=== PATIENT | female | born 1995 | race Caucasian/White ===

== ENCOUNTER 2017-03-08 02:10 | Emergency (ER) | payer OTHER ==
[2017-03-08 02:17] VITALS: TEMP 97.5
[2017-03-08 08:02] VITALS: BP 158/112; PULSE 73
== END 2017-03-08 07:45 | disposition home or self-care (01) ==
LOC: COL.ER 02:10
DX: F10.129 Alcohol abuse with intoxication, unspecified (principal); E03.9 Hypothyroidism, unspecified
CPT/HCPCS: J2405; J7030

== ENCOUNTER 2018-10-27 16:45 | Emergency (ER) | payer OTHER ==
[~2018-10-27] VITALS: Ht 170.2 cm; Wt 109.1 kg
[2018-10-27 16:52] VITALS: BP 149/96; TEMP 98.3
[2018-10-27] MEDS ORDERED: UNKNOWN THYROID MED (17:04)
[2018-10-27] MEDS ORDERED: CRUTCHES MC (17:47)
[2018-10-27 18:01] VITALS: PULSE 82
== END 2018-10-27 18:03 | disposition home or self-care (01) ==
LOC: COL.ER 16:45
DX: S92.352A Displaced fracture of fifth metatarsal bone, left foot, initial encounter for closed fracture (principal); I10 Essential (primary) hypertension; Z88.0 Allergy status to penicillin; Z88.1 Allergy status to other antibiotic agents; X50.0XXA Overexertion from strenuous movement or load, initial encounter